=== PATIENT | female | born 1935 | race Caucasian/White ===

== ENCOUNTER 2020-05-20 10:15 | Outpatient (CLI) | payer MEDICARE, BC ==
[2013-09-27 13:00] VITALS: BMI 32.1
[~2020-05-20 10:15] MED LIST: ACCUPRIL40 MG PO; ACETAMINOPHEN500 M1 PO; ALDACTONE50 MG PO; APRESOLINE25 MG PO; ATROVENT 0.02%2.5 ML UPD; CATAPRES0.1 MG PO; CORDARONE200 MG PO; COUMADIN2 MG PO; COUMADIN2.5 MG PO; COUMADIN3 MG PO; DEXTROSE 50%/WA50 ML IV; FOLIC ACID1 MG PO; GAS-X80 MG PO; GLUCAGON1 MG/KIT IM; GLUCAGON1 MG/KIT SQ; GLUCOPHAGE500 MG PO; GLUCOTROL 5 MG T5 MG PO; HYDROCHLOROTH12.5 M1 PO; INSTA-GLUCOSE31 GM PO; LASIX40 MG PO; MERREM IV1 G/VIAL IV; MIRALAX17 GM PO; NORVASC10 MG PO; POTASSIUM20 MEQ/15 PO; SALINE FLUSH10 ML IVP; SYNTHROID100 MCG PO; TYLENOL650 MG RC; VITAMIN D2000 UNIT PO; XOPENEX 1.1.25 MG/3 UPD
== END 2020-05-20 16:00 | disposition home or self-care (01) ==
LOC: D.MAMMO 10:15
PROVIDERS: ATTEND Family Medicine
DX: Z12.31 Encounter for screening mammogram for malignant neoplasm of breast (principal)